=== PATIENT | female | born 1975 | race Caucasian/White ===

== ENCOUNTER 2017-02-18 08:36 | Day surgery (SDC) | payer OTHER ==
[~2017-02-18] VITALS: Ht 162.6 cm; Wt 102.1 kg
[~2017-02-18 08:36] MED LIST: FLEXERIL10 MG PO; MOTRIN600 MG PO; NOHOMEMEDS; PERCOCET 5/31 TABLET PO; PROGESTERONE100 MG PO
[2017-02-18 09:42] VITALS: BP 118/82
[2017-02-18] MEDS ORDERED: ENDOCET 5-3251 EACH PO (11:15)
[2017-02-18 12:00] VITALS: BP 124/66
[2017-02-18 12:37] VITALS: BP 142/69
== END 2017-02-18 12:40 | disposition home or self-care (01) ==
LOC: SDC 08:36
PROC: 0UJD8ZZ Inspection of Uterus and Cervix, Via Natural or Artificial Opening Endoscopic (ICD-10-PCS; principal; 2017-02-18)
DX: D25.9 Leiomyoma of uterus, unspecified (principal); N92.0 Excessive and frequent menstruation with regular cycle; N93.8 Other specified abnormal uterine and vaginal bleeding
CPT/HCPCS: 86850; 86900; 86901; J1885; J2250; J2405; J3010

== ENCOUNTER 2017-04-17 07:32 | Day surgery (SDC) | payer OTHER ==
[~2017-04-17] VITALS: Ht 162.6 cm; Wt 102.1 kg
[~2017-04-17 07:32] MED LIST changes: +ENDOCET 5-3251 EACH PO
[2017-04-17 07:50] VITALS: BP 136/77
[2017-04-17 14:10] VITALS: BP 123/60
[2017-04-17 19:22] VITALS: BP 121/70
[2017-04-17 23:22] VITALS: BP 114/56
[2017-04-18 03:10] VITALS: BP 116/59
[2017-04-18 07:12] LABS: MCHC 30.6 G/DL (30.0-36.0); MCV 78.6 FL (83-99); PLATELET COUNT 310 K/uL (156-360); RBC DIS.WIDTH-SD 45.5 % (39-53); WHITE BLOOD COUNT 9.9 K/uL (4.1-10.2)
[2017-04-18 07:15] LABS: HEMOGLOBIN 10.1 G/DL (11.9-15.5)
[2017-04-18 08:00] VITALS: BP 113/59
== END 2017-04-18 09:25 | disposition home or self-care (01) ==
LOC: SDC 07:32 → 2SOUTH 11:43 → 2EASTP 11:43 → 2SOUTH 11:43 → ENRESERV 12:12 → 2EASTP 13:50
PROVIDERS: Obstetrics & Gynecology Obstetrics
DX: C54.1 Malignant neoplasm of endometrium (principal); D25.9 Leiomyoma of uterus, unspecified; N80.0 Endometriosis of uterus; N92.0 Excessive and frequent menstruation with regular cycle; F32.9 Major depressive disorder, single episode, unspecified; Z87.891 Personal history of nicotine dependence
CPT/HCPCS: 85027; 88307; 88309; G0378; J0131; J0330; J1100; J1170; J1580; J1885; J2250; J2405; J2710; J3010; J7050; J7120; S0020